=== PATIENT | female | born 2000 | race African-American/Black ===

== ENCOUNTER 2020-10-24 07:39 | Outpatient (CLI) | payer OTHER ==
[2020-10-24] VITALS (7 sets, daily range): BP systolic 105–132; BP diastolic 60–74; PULSE 53–78
[~2020-10-24] VITALS: Ht 162.6 cm; Wt 75.5 kg
[~2020-10-24 07:39] MED LIST: BIRTH CONTROL
[2020-10-24] MEDS ORDERED: TRI-SPRINTEC 281 TAB PO (07:55)
[2020-10-24 09:42] LABS: CSF APPEARANCE CLEAR; CSF COLOR COLORLESS; CSF RBC < 1 /mm3 (0-0)
--- NOTE | 2020-10-24 10:00 | NUR ---
Discharge instructions given to pt.pt verbalizes understanding.Pt escorted out by this nurse.
[2020-10-24 10:02] LABS: CSF MONONUCLEAR 0 % (70-100); CSF POLYMORPHONUCLEAR 0 % (0-6)
[2020-10-24 10:07] LABS: GLUCOSE,CSF 56 mg/dL (40-70); TOTAL PROTEIN,CSF 31 mg/dL (15-45)
[2020-10-29 14:44] LABS: CSF OLIG BD INTERPRETATION 0 bands (<2); CSF OLIGOCLONAL BANDING 0 bands (()); SE OLIGOCLONAL BANDING 0 bands (())
[2020-10-30 09:00] LABS: ALBUMIN CSF 8.1 mg/dL (<=27.0); CSF IGG/ALBUMIN 0.15 (<=0.21); CSF,IGG 1.2 mg/dL (<=8.1)
[2020-10-30 09:14] LABS: ALBUMUN SERUM 3570 mg/dL (()); CSF-IGG INDEX 0.47 (<=0.85); IGG,SERUM 1140 mg/dL (()); IGG/ALBUMIN SERUM 0.32 (<=0.40)
== END 2020-10-24 13:33 | disposition home or self-care (01) ==
LOC: COL.RAD 07:39
PROVIDERS: Psychiatry & Neurology Neurology
DX: R51.9 Headache, unspecified (principal)

== ENCOUNTER → 2020-11-01 | Outpatient (CLI) | payer OTHER ==
[~2020-11-01] MED LIST changes: +TRI-SPRINTEC 281 TAB PO
== END ==
LOC: COL.RAD 13:41
DX: R51.9 Headache, unspecified (principal)
CPT/HCPCS: A9585